=== PATIENT | male | born 1995 | race Hispanic/Latino ===

== ENCOUNTER 2017-11-09 14:41 | Emergency (ER) | payer SELFPAY ==
[2017-11-09] MEDS ORDERED: ACETAMINOPHEN EXTRA STRENGTH 500 MG TABLET ONE (15:38)
[2017-11-09 15:55] LABS: BASOPHILS % (AUTO) 0.4 % (0.0-5.0); HEMATOCRIT 45.2 % (42-54); LYMPHOCYTES % (AUTO) 4.1 % (21.0-51.0); MEAN CORPUSCULAR HGB CONC 35.1 g/dL (32.0-36.0); MEAN CORPUSCULAR VOLUME 85.6 fL (80-100); MONOCYTES % (AUTO) 7.1 % (3.0-13.0); NEUTROPHILS % (AUTO) 88.4 % (40.0-77.0); PLATELET COUNT (AUTO) 168 K/uL (130-400); RED BLOOD CELL COUNT(AUTO) 5.28 MIL/uL (4.50-6.20); RED CELL DISTRIBUTION WIDTH 12.8 % (11.0-15.5); WHITE BLOOD COUNT (AUTO) 10.7 K/uL (4.8-10.8)
[2017-11-09 16:02] LABS: APPEARANCE,URINE Clear (CLEAR); BILIRUBIN,URINE Negative (NEGATIVE); COLOR,URINE Yellow (YELLOW); GLUCOSE, URINE (UA) Negative (NEGATIVE); KETONES,URINE Negative (NEGATIVE); LEUKOCYTE ESTERASE ,URINE Negative (NEGATIVE); NITRATE,URINE Negative (NEGATIVE); OCCULT BLOOD,URINE Negative (NEGATIVE); PROTEIN,URINE Trace (NEGATIVE)
[2017-11-09 16:11] LABS: POTASSIUM 3.2 mmol/L (3.5-5.1)
[2017-11-09 16:18] LABS: ALBUMIN 4.4 g/dL (3.5-5.0); BILIRUBIN,TOTAL 0.8 mg/dL (0.2-1.0); TOTAL PROTEIN, SERUM 7.8 g/dL (6.0-8.3)
[2017-11-09 16:26] LABS: RAPID GROUP A STREP NEGATIVE (NEGATIVE)
[2017-11-09 18:07] LABS: BACTERIA,URINE Rare /HPF (None Seen); RBC,URINE 0-1 /HPF (0-1); SQUAMOUS EPITHELIAL CELL,UR Rare /HPF (0-2); WBC,URINE 0-1 /HPF (0-1)
== END 2017-11-09 18:04 | disposition home or self-care (01) ==
LOC: EDH 14:41
DX: M79.1 Myalgia (principal); R50.9 Fever, unspecified
CPT/HCPCS: 36415; 80053; 81001; 85025; 87804; 87880

== ENCOUNTER 2017-11-09 20:10 | Emergency (ER) | payer SELFPAY ==
[2017-11-09] MEDS ORDERED: HYOSCYAMINE SULFATE 0.125 MG TAB.SUBL SL ONE (21:11)
[2017-11-09] MEDS ORDERED: SODIUM CHLORIDE 0.9% 1000ML 1,000 ML IV ONE (21:11)
[2017-11-09] MEDS ORDERED: LOPERAMIDE HCL 2 MG CAP PO ONE (22:08)
== END 2017-11-09 22:30 | disposition home or self-care (01) ==
LOC: EDH 20:10
DX: A09 Infectious gastroenteritis and colitis, unspecified (principal); E86.0 Dehydration; R50.9 Fever, unspecified
CPT/HCPCS: 96360; 99284; J7030